=== PATIENT | male | born 1965 | race Caucasian/White ===

== ENCOUNTER 2017-02-01 10:53 | Emergency (ER) | payer OTHER ==
[2017-02-01 11:05] VITALS: BP 117/65; PULSE 124; RESP 20; TEMP 98.6; O2SAT 95
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
[2017-02-01] MEDS ORDERED: TETANUS/DIPHTHERIA TOXOID ADULT 0.5 ML VIAL IM ONE (11:15)
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
[2017-02-01] MEDS ORDERED: ACETAMINOPHEN 500 MG CPLT PO ONE (13:15)
[2017-02-01] MEDS ORDERED: ROBA500T PO (13:28)
== END 2017-02-01 13:41 | disposition home or self-care (01) ==
LOC: PHEFT 10:53
DX: S20.212A Contusion of left front wall of thorax, initial encounter (principal); S00.81XA Abrasion of other part of head, initial encounter; S13.4XXA Sprain of ligaments of cervical spine, initial encounter; Y35.813A Legal intervention involving manhandling, suspect injured, initial encounter; Y93.02 Activity, running; Z23 Encounter for immunization
CPT/HCPCS: 70450; 71010; 72125; 90471; 90714